=== PATIENT | male | born 1970 | race Hispanic/Latino ===

== ENCOUNTER 2021-10-31 06:27 | Day surgery (SDC) | payer BC ==
[2021-10-31 07:47] LABS: Basophils % (Auto) 0.5 % (0.0-1.8); Eosinophils # (Auto) 0.1 K/mm3 (0.0-0.4); Eosinophils % (Auto) 0.7 % (0.0-4.3); Hemoglobin 15.6 gm/dl (11.8-15.2); Lymphocytes # (Auto) 1.6 K/mm3 (1.2-5.4); Lymphocytes % (Auto) 18.6 % (13.4-35.0); Mean Corpuscular HGB Conc 33 % (32-34); Mean Corpuscular Volume 92 fl (84-94); Monocytes # (Auto) 0.6 K/mm3 (0.0-0.8); Monocytes % (Auto) 6.6 % (0.0-7.3); Platelet Count 225 K/mm3 (140-440); Red Blood Count 5.09 M/mm3 (3.65-5.03); Red Cell Distribution Width 13.1 % (13.2-15.2)
[2021-10-31 07:51] LABS: BUN/Creatinine Ratio 12; Blood Urea Nitrogen 11 mg/dL (9-20); Calcium 9.9 mg/dL (8.4-10.2); Hemolysis Index 5; INR 0.96 (0.87-1.13)
[2021-10-31] MEDS: SODIUM CHLORIDE 0.9% 500 ML 500 ML IV SCH ×3 (08:25→09:00)
[2021-10-31] MEDS: MIDAZOLAM 2 MG/2 ML INJ ONE ×3 (08:30→09:27)
[2021-10-31] MEDS: HEPARIN 10,000 UNITS/10 ML VIAL ONE ×3 (08:31→09:13)
[2021-10-31] MEDS: LIDOCAINE (2%) 20 MG/1 ML VIAL 20 ML MDV INFILTRATI ONE ×2 (08:31→09:02)
[2021-10-31] MEDS: fentaNYL 100 MCG/2 ML INJ ONE ×3 (08:31→09:27)
[2021-10-31] MEDS: VERAPAMIL 5 MG/2 ML INJ ONE ×2 (08:32→09:08)
[2021-10-31] MEDS: NITROGLYCERIN SYRINGE 6 ML ONE ×2 (08:32→09:08)
[2021-10-31] MEDS: HEPARIN/NS 5000 UNIT/500ML 1,000 ML IR ONE ×2 (08:32→09:08)
[2021-10-31] MEDS ORDERED: TICAGRELOR 90 MG TAB ONE (09:29)
[2021-10-31] MEDS ORDERED: ASPIRIN 81 MG TAB CHEW PO SCH ×2 (10:00)
[2021-10-31] MEDS ORDERED: ISOSORBIDE DINITRATE 5 MG PO SCH (10:00)
[2021-10-31] MEDS ORDERED: metFORMIN XR 500MG TAB PO SCH (10:00)
[2021-10-31] MEDS ORDERED: FLUTICASONE PROPIONATE NASAL SPRAY 16 GM NS SCH (10:00)
[2021-10-31] MEDS ORDERED: SODIUM CHLORIDE 0.9% 1000 ML 1,000 ML IV SCH (10:00)
[2021-10-31] MEDS ORDERED: CANDESARTAN 16 MG PO SCH (10:00)
--- NOTE | 2021-10-31 10:15 | Electrocardiograph Report ---
[facility] Test Date: 2021-10-31 Test Time: 07:30:41 Pat Name: LON MACIEL Department: Room: Gender: M Narcotics Agent: ANA LUISA : 1970 Requested By: MATHEUS BARTON Order Number: [id number] Reading MD: Jaron Dodge Measurements Intervals [place] Rate: 59 P: 10 KS: 194 QRS: 14 QRSD: 105 T: 33 QT: 416 QTc: 413 Interpretive Statements Sinus rhythm No previous ECG available for comparison Electronically Signed On 10-31-2021 10:14:44 EST by Jaron Dodge
--- NOTE | 2021-10-31 10:41 | Cardiac Catherization Report ---
DATE OF SERVICE: 10/31/2021 LEFT HEART CATHETERIZATION, PERCUTANEOUS CORONARY INTERVENTION WITH INTRAVASCULAR ULTRASOUND REPORT CLINICAL INFORMATION: This is a 51-year-old male with history of known coronary artery disease, LAD proximal, mid stent, distal small vessel and diagonal small vessel who presents with unstable angina with abnormal stress test despite medical management, has hypertension, hyperlipidemia and on dual antiplatelet therapy. Procedure was done with moderate sedation started at 09:01 and finished at 09:28, 27 minutes of moderate sedation. DESCRIPTION OF PROCEDURE: Procedure was done via the right radial artery, sterile technique and local anesthesia. A 6-Fijian radial sheath inserted. Left system engaged with a JL3.5 catheter. Left main is large and patent, bifurcates into large LAD proximal stent widely patent, mid stent is widely patent. Then, the distal LAD is diffusely diseased, small vessel, less than 2 mm of 60%. Diagonal 1 is patent. Diagonal 2 is a small caliber vessel, less than 2 mm and mid 99% lesion. Two focal lesions. No change from last year's catheterization. Diagonal 3 small caliber vessel is patent. Circumflex medium caliber vessel, proximal patent, mid focal 95% prior to the bifurcation of small OM1 and distal circumflex. RCA engaged with JR4 catheter, is a large, dominant vessel, proximal 20%, mid to distal patent. Mild luminal irregularities. PDA, PLV are medium caliber vessels that are long that cover the lateral wall that are patent with mild luminal irregularities. LV gram done in [place] and BLOOM view shows normal LV function, LVEDP of 10 mmHg, LV is 144, aortic is 144/83. No gradient across the aortic valve on pullback. The 5-Fijian catheters were taken out and we went and percutaneous coronary intervention of the mid circumflex gave IV heparin achieved adequate ACT engaged the left system with an EBU 3.5 guiding catheter, crossed into the OM1 short [place] wire. Balloon mid circumflex with a 2.5 x 12 mm balloon at 12 atmospheres. Intravascular ultrasound showed differential graft, reference vessel 3.0 x 3.3, proximal 3.0 x 3.5. Stented mid circumflex with a drug-eluting Resolute Gregory 3.0 x 18 mm at 15 atmospheres. Excellent angiographic result with good stent apposition and expansion noted. Removed coronary wire, multiple angiograms, no distal dissection, reduced stenosis from 95% to 0. No embolization. The patient was chest pain free, 6-Fijian guiding catheter taken over a guidewire. A 6-Fijian radial sheath was DC. Radial band applied. No hematoma, bleeding. The patient was loaded with Brilinta 180. SUMMARY: 1. Successful PCI of the mid circumflex with a drug-eluting Resolute Gregory 3.0 x 18 mm at 15 atmospheres. IVUS directed. Angiography, left main patent, LAD proximal patent, mid stent patent distal LAD is diffusely diseased 60%. Diagonal 1 small caliber vessel, patent. Diagonal 2 is less than 2 mm vessel, has 2 focal 99% lesions. No change from catheterization from last year. Diagonal 3 small caliber vessel is patent, OM1 and distal circumflex small caliber vessel, patent. RCA is a large, dominant vessel, proximal 20%, mid to distal patent. Mild luminal irregularities. PDA, PLV are medium caliber vessel, patent with mild luminal irregularities with normal left ventricular function. 2. The patient's anticipated discharge today. Dual antiplatelet therapy discussed in detail with the patient and the patient's family. TID: [id number] RECEIPT: [id number] RACHEAL/YAQUELIN
[2021-10-31] MEDS ORDERED: ISOSORBIDE DINITRATE 10 MG TAB PO SCH (11:00)
[2021-10-31] MEDS ORDERED: METOPROLOL TARTRATE 25 MG TAB PO SCH (11:00)
[2021-10-31] MEDS ORDERED: LOSARTAN 50 MG TAB PO SCH (11:00)
[2021-10-31] MEDS ORDERED: HYDROcodone/ACETAMINOPHEN 5-325 MG TAB PO PRN (11:00)
--- NOTE | 2021-10-31 11:48 | Short Stay Summary ---
Short Stay Documentation Date of service: 10/31/21 - History H&P: obtained from office - Allergies and Medications Current Medications: Allergies atorvastatin Allergy (Verified 10/31/21 07:08) Unknown ciprofloxacin [From Cipro] Allergy (Verified 10/31/21 07:08) Rash Home Medications Medication Instructions Recorded Confirmed Last Taken Type Aspirin [Aspirin BABY CHEW TAB] 81 mg PO QDAY 10/31/21 10/31/21 10/31/21 History 81 MG Candesartan (Nf) [Atacand (Nf)] 16 mg PO DAILY 10/31/21 10/31/21 10/31/21 05:30 History 16 MG Clopidogrel [Plavix] 75 mg PO QDAY 10/31/21 10/31/21 10/31/21 History 75 MG Fluticasone [Flonase] 1 spray NS QDAY 10/31/21 10/31/21 Unknown History Isosorbide Dinitrate [Isordil 5 mg PO BID 10/31/21 10/31/21 10/29/21 History Titradose] 5 MG Metoprolol [Lopressor] 25 mg PO DAILY 10/31/21 10/31/21 10/30/21 History 25 MG Oxymetazoline 0.05% [Vicks Sinex] 0 spray NS BID 10/31/21 10/31/21 10/29/21 History Ubiquinol 100 mg PO DAILY 10/31/21 10/31/21 Unknown History metFORMIN XR [Glucophage XR] 500 mg PO QDAY 10/31/21 10/31/21 10/29/21 History 500 MG Active Medications Hydrocodone Bitart/Acetaminophen (Hydrocodone/Acetaminophen 5-325 Mg Tab) 1 each PO Q6H PRN PRN Reason: Pain, Moderate (4-6) Aspirin (Aspirin 81 Mg Tab Chew) 81 mg PO QDAY [place] Fluticasone Propionate (Fluticasone Propionate Nasal [place] 16 Gm) 50 mcg NS QDAY [place] Sodium Chloride (Nacl 0.9% 500 Ml) 500 mls @ 50 mls/hr IV DIRECT [place] Stop: 10/31/21 17:59 Last Admin: 10/31/21 09:00 Dose: 50 mls/hr Sodium Chloride (Nacl 0.9% 1000 Ml) 1,000 mls @ 100 mls/hr IV DIRECT [place] Stop: 10/31/21 15:59 Isosorbide Dinitrate (Isosorbide Dinitrate 10 Mg Tab) 5 mg PO BID [facility] Losartan Potassium (Losartan 50 Mg Tab) 100 mg PO QDAY [facility] Metformin HCl (Metformin Xr 500mg Tab) 500 mg PO QDDIAB [facility] Metoprolol Tartrate (Metoprolol Tartrate 25 Mg Tab) 25 mg PO DAILY [facility] Ticagrelor (Ticagrelor 90 Mg Tab) 90 mg PO BID [place] - Brief post op/procedure progress note Date of procedure: 10/31/21 Pre-op diagnosis: unstable angina Post-op diagnosis: other (s/p pci of lcx) Procedure: see report Anesthesia: local Estimated blood loss: minimal Pathology: none Condition: stable - Hospital course Hospital course: 51-year-old male with history of coronary arterial disease with stents in LAD hypertension hyperlipidemia having unstable anginal symptoms despite medical management abnormal stress test. Patient had heart catheterization revealed left main patent LAD proximal stent patent mid stent patent distal diffuse disease diagonal 2 small vessel disease circumflex at 95% lesion has successful PCI circumflex. With patent RCA with normal function. Via right radial approach. Patient will continue aspirin will initiate Brilinta 90 mg twice a day continue home meds. Patient may discharge same-day. discharge criteria met and patient will follow up in the office 1 week - Disposition Condition at discharge: Good Disposition: 01 HOME / SELF CARE / HOMELESS - Discharge Diagnoses (1) Atherosclerotic heart disease of [place] coronary artery with unstable angina pectoris Status: Acute Qualifiers: [place] vs. transplanted heart: [place] heart Qualified Code(s): I25.110 - Atherosclerotic heart disease of [place] coronary artery with unstable angina pectoris (2) Acute diastolic CHF (congestive heart failure) Status: Acute (3) Hypertension Status: Chronic Qualifiers: Hypertension type: primary hypertension Qualified Code(s): I10 - Essential (primary) hypertension (4) Hyperlipemia, mixed Status: Chronic (5) CAD (coronary artery disease) Status: Chronic Qualifiers: Coronary Disease-Associated Artery/Lesion type: [place] artery [place] vs. transplanted heart: [place] heart Associated angina: with unstable angina Qualified Code(s): I25.110 - Atherosclerotic heart disease of [place] coronary artery with unstable angina pectoris (6) Diabetes mellitus Status: Chronic Qualifiers: Diabetes mellitus type: type 2 Diabetes mellitus remote computer terminal operator insulin use: with remote computer terminal operator use Diabetes mellitus complication status: with circulatory complication Diabetes mellitus complication detail: with other circulatory complications Qualified Code(s): E11.59 - Type 2 diabetes mellitus with other circulatory complications; Z79.4 - remote computer terminal operator (current) use of insulin Short Stay Discharge Plan Activity: advance as tolerated Diet: low fat, low cholesterol, low salt, diabetic Wound: keep clean and dry Special Instructions: hold Metformin (for two days) Follow up with: DANNIELLE TA MD [Primary Care Provider] - 7 Days Prescriptions: Ticagrelor [Brilinta] 90 mg PO BID 30 Days #60 tablet Ticagrelor [Brilinta] 90 mg PO BID #180 tablet
[2021-10-31 15:35] VITALS: BP 158/79
[2021-10-31] MEDS ORDERED: TICAGRELOR 90 MG TAB PO SCH (22:00)
== END 2021-10-31 16:13 | disposition home or self-care (01) ==
LOC: CATHLABREC 06:27
PROVIDERS: ATTEND Internal Medicine
DX: R94.39 Abnormal result of other cardiovascular function study (principal); E11.9 Type 2 diabetes mellitus without complications; E78.2 Mixed hyperlipidemia; I25.110 Atherosclerotic heart disease of native coronary artery with unstable angina pectoris; I11.0 Hypertensive heart disease with heart failure; I50.31 Acute diastolic (congestive) heart failure; Z98.890 Other specified postprocedural states; Z82.61 Family history of arthritis; Z84.1 Family history of disorders of kidney and ureter; Z83.79 Family history of other diseases of the digestive system; Z88.8 Allergy status to other drugs, medicaments and biological substances; Z79.899 Other long term (current) drug therapy; Z79.82 Long term (current) use of aspirin; Z79.84 Long term (current) use of oral hypoglycemic drugs; Z82.49 Family history of ischemic heart disease and other diseases of the circulatory system
CPT/HCPCS: 36415; 80048; 85025; 85610; 85730; 92978; 93005; 93010; 93458; 99156; 99157; C1725; C1753; C1769; C1874; C1887; C1894; C9600; J1644; J1815; J2250; J3010; J3490; J7040; 92928; Q9967